=== PATIENT | female | born 1965 | race African-American/Black ===

== ENCOUNTER → 2017-06-03 | Outpatient (CLI) | payer OTHER | LOC: RAD 11:15 | DX: Z12.31 Encounter for screening mammogram for malignant neoplasm of breast (principal) ==

== ENCOUNTER 2019-01-29 03:47 | Emergency (ER) | payer OTHER ==
[~2019-01-29] VITALS: Ht 175.3 cm; Wt 127.0 kg
[2019-01-29 03:56] VITALS: BP 130/79
[2019-01-29] MEDS ORDERED: TESSALON PERLE100 MG PO (03:59)
[2019-01-29] MEDS ORDERED: COZAAR 25 MG TA25 M2 PO (04:02)
[2019-01-29] MEDS ORDERED: HYDROCHLOROTH12.5 M1 PO (04:03)
== END 2019-01-29 04:22 | disposition home or self-care (01) ==
LOC: ER 03:47
DX: R05 Cough (principal); K21.9 Gastro-esophageal reflux disease without esophagitis

== ENCOUNTER → 2019-03-15 | Outpatient (CLI) | payer OTHER ==
[~2019-03-15] MED LIST: COZAAR 25 MG TA25 M2 PO; HYDROCHLOROTH12.5 M1 PO; TESSALON PERLE100 MG PO
== END ==
LOC: RAD 12:34
DX: Z12.31 Encounter for screening mammogram for malignant neoplasm of breast (principal)